=== PATIENT | male | born 1935 | race Caucasian/White ===

== ENCOUNTER 2016-11-20 13:11 | Emergency (ER) | payer MEDICARE, OTHER ==
[~2016-11-20] VITALS: Ht 172.7 cm; Wt 66.0 kg
[~2016-11-20 13:11] MED LIST: Z.0.NO CURRENT MEDS
[2016-11-20 13:18] VITALS: BP 169/90; PULSE 61; RESP 16; TEMP 98.1; O2SAT 100
--- NOTE | 2016-11-20 13:55 | PD ---
HPI Chief Complaint: Injury Time Seen by Provider: 13:51 Travel History International Travel<30 days: No Contact w/Intl Traveler<30days: No Traveled to known affect area: No History of Present Illness HPI 80-year-old male presents to the emergency room for evaluation of left rib pain after trip and fall just prior to arrival. Patient was running/jogging and tripped over a hump in the curb and fell forward. Patient states typically when he falls he will extend his arms and rolled but he wasn't able to roll this time. He believes he struck his left chest on the concrete. He reports anterior left-sided rib pain worse with palpation and deep breathing. Denies hitting his head or loss of consciousness. He also sustained 2 large abrasions to his left knee. Patient denies any pain and was able to walk home without difficulty. He denies pain or injuries anywhere else. Last tetanus was a few months ago. Denies cardiac history, radiation of symptoms, shortness of breath. PFSH Past Medical History Diabetes: No Diminished Hearing: No Respiratory: Yes (PUNCTURED RT LUNG) Tetanus Vaccination: < 5 Years Influenza Vaccination: Yes Past Surgical History Other Surgery: Yes (RIGHT KNEE) Social History Alcohol Use: Yes (OCCASIONSAL) Tobacco Use: No Substance Use: No Allergies-Medications (Allergen,Severity, Reaction): Coded Allergies: No Known Allergies (Verified , 11/20/16) Reported Meds & Prescriptions Reported Meds & Active Scripts Active Review of Systems Except as stated in HPI: all other systems reviewed are Neg Physical Exam Narrative GENERAL: Well-nourished, well-developed male in no acute distress. Ambulatory. SKIN: Warm and dry. 2 superficial abrasions to the left anterior and lateral knee. HEAD: Normocephalic. EYES: No scleral icterus. No injection or drainage. NECK: Supple, trachea midline. No JVD or lymphadenopathy. CARDIOVASCULAR: Regular rate and rhythm without murmurs, gallops, or rubs. RESPIRATORY: Breath sounds equal bilaterally. No accessory muscle use. CHEST: Nontender throughout without deformity or crepitance. No retractions or use of accessory muscles. EXTREMITY: Left knee is nontender to palpation. Full range of motion in all joints. No edema or effusion. Data Data Last Documented VS Vital Signs Date Time Temp Pulse Resp B/P Pulse Ox O2 Delivery O2 Flow Rate FiO2 11/20/16 13:18 98.1 61 16 169/90 100 Orders Ribs, Uni (W/Exp Cxr-Min 3vw) (11/20/16 ) Wound Care (11/20/16 13:48) Electrocardiogram (11/20/16 ) MDM Medical Decision Making Medical Screen Exam Complete: Yes Emergency Medical Condition: Yes Medical Record Reviewed: Yes Differential Diagnosis Abrasion versus strain versus fracture versus contusion Narrative Course 80-year-old male presents to the emergency room for evaluation of left-sided anterior rib pain after trip and fall just prior to arrival. Patient was jogging when he tripped over a curb and fell forward. He believes he landed on his left chest. No associated cardiac symptoms. There are 2 superficial abrasions to the left lateral and anterior knee; they were cleaned and dressed in the ER. There is tenderness to palpation in the left anterior chest wall and pain is worsened with deep inspiration and range of motion of the left upper extremity. EKG shows sinus bradycardia with a rate of 51, no ST elevation ; signed off by my attending physician. Chest x-ray the rib cage is negative for acute abnormality. This is musculoskeletal chest wall pain. Patient discharged with orthopedic instructions and told to follow up with a primary care physician or return to the emergency room for worsening symptoms. He understands and agrees to plan. Diagnosis Primary Impression: Anterior chest wall pain Referrals: Primary Care Physician Patient Instructions: Chest Wall Pain (ED), General Instructions Additional Instructions: Rest and drink plenty of fluids. Take Tylenol as directed, as needed for pain. Apply ice to the affected area for 20 minutes at a time, as needed for pain and swelling. Follow-up with a primary care physician. Return to the emergency room for worsening symptoms. Med/Other Pt SpecificInfo: Prescription(s) given Scripts No Active Prescriptions or Reported Meds Disposition: 01 DISCHARGE HOME Condition: Stable Alee Santacruz Nov 20, 2016 13:55
--- NOTE | 2016-11-20 15:28 | RADHPO ---
EXAM DATE/TIME: 11/20/2016 14:31 [facility] COMPARISON: CHEST PA & LAT, January 10, 2012, 3:21. INDICATIONS : Patient states he has left upper rib pain from fall while running today. MEDICAL HISTORY : None. SURGICAL HISTORY : None. ENCOUNTER: Initial ACUITY: 1 day PAIN SCORE: 5/10 LOCATION: Left upper ribs. FINDINGS: Expiratory view of the chest demonstrates no pneumothorax or acute finding. No rib fracture or acute rib abnormality is identified. There are chronic changes at the distal left clavicle with hypertrophi c bone. CONCLUSION: No rib fracture or acute abnormality is identified. Blair Chavez MD on November 20, 2016 at 15:24 Board Certified Radiologist. This report was verified electronically.
--- NOTE | 2016-11-20 15:53 | EKG ---
Date Performed: 11/20/2016 Time Performed: 14:04:02 PTAGE: 80 years EKG: Sinus bradycardia with borderline 1st degree A-V block Mildly prolonged QT interval Possibl e septal infarct - age undetermined Abnormal ECG COMPARED TO PRIOR ELECTROCARDIOGRAM, Septal infarct pattern is present. This could be due to changes in lead placement. Clinical correlation suggested. PREVIOUS TRACING : 02/28/2008 11.51 DOCTOR: Sina Rizzo Interpretating Date/Time 11/20/2016 15:52:55
== END 2016-11-20 15:44 | disposition home or self-care (01) ==
LOC: PHEFT 13:11
DX: R07.89 Other chest pain (principal); S80.212A Abrasion, left knee, initial encounter; W10.1XXA Fall (on)(from) sidewalk curb, initial encounter; Y93.02 Activity, running
CPT/HCPCS: 71101; 93005

== ENCOUNTER 2017-01-16 19:45 | Observation (INO) | payer MEDICARE, OTHER ==
[~2017-01-16] VITALS: Ht 172.7 cm; Wt 68.2 kg
[2017-01-16 20:11] VITALS: BP 149/85; PULSE 52; RESP 16; TEMP 98.2; O2SAT 98
[2017-01-16 20:20] VITALS: BP 182/91; PULSE 51; O2SAT 93
--- NOTE | 2017-01-16 20:40 | PD ---
HPI Chief Complaint: Dizziness Time Seen by Provider: 20:31 Travel History International Travel<30 days: No Contact w/Intl Traveler<30days: No Traveled to known affect area: No History of Present Illness HPI 81-year-old male presents to the emergency department by private transportation in the care of his for complaint of rightward leaning and "possible dizziness". According to the patient as well as his who is at the bedside , this evening he went to dinner with a friend and his at 5 PM. According to the patient and during dinner he drank 3 large beers. Patient along with his and friend subsequently after dinner went out and walked on the beach. Patient initially had no difficulties with walking or any balance disturbance or dizziness. states that sometime during her walk they think sometime around 7:20 she started noticing that he seemed to be walking with a rightward leaning gait. Patient noticed it as well and tried to get higher up on the sand thinking the ground was unbalanced but could not correct his rightward leaning. They continue to walk a little further and then because of the persistence contacted a escrow agent [facility] and the then drove him to the hospital. Patient noted while he was getting out of the escrow agent jeep and into his vehicle that the balance disturbance seem to be improving. dropped him at the curb and front of the hospital and he was able to ambulate without difficulty to the front door the hospital and then his with him into the hospital. stated that he was not having any difficulty walking and there was no leaning at that time but she decided to hold on him anyway just in case. Patient states he feels fine now does not have any sensation of dizziness and denies any sensation of feeling off balance or rightward leaning. Patient denies any headache, visual disturbance, speech disturbance, confusion, difficulty with swallowing, also no upper or lower extremity numbness tingling or weakness, denies sensation of balance disturbance or dizziness at this time, patient also denies any chest pain, palpitations, sweats, shortness of breath, nausea or vomiting, referred neck jaw back shoulder arm or abdominal pain. Patient has had no recent respiratory illness or febrile illness. She has had no fall or injury. Patient has had no prior history of similar symptoms. Patient takes no blood thinning agents. Patient does take prescription cholesterol medications. [facility] Past Medical History Narrative Medical Hypercholesterolemia, lung puncture, knee surgery, alcohol use; nursing notes reviewed Diabetes: No Diminished Hearing: No Respiratory: Yes (PUNCTURED RT LUNG) Past Surgical History Other Surgery: Yes (RIGHT KNEE) Social History Alcohol Use: Yes (OCCASIONSAL) Tobacco Use: No Substance Use: No Allergies-Medications (Allergen,Severity, Reaction): Coded Allergies: No Known Allergies (Verified , 01/16/17) Reported Meds & Prescriptions Reported Meds & Active Scripts Active Narrative Medication Cholesterol medication Review of Systems Except as stated in HPI: all other systems reviewed are Neg General / Constitutional: No: Fever, Chills Eyes: No: Diploplia, Blurred Vision, Photophobia HENT: Positive: Lightheadedness, No: Headaches, Vertigo Cardiovascular: No: Chest Pain or Discomfort, Palpitations, Diaphoresis Respiratory: No: Shortness of Breath Gastrointestinal: No: Nausea, Vomiting, Diarrhea, Abdominal Pain Genitourinary: No: Flank Pain Musculoskeletal: No: Myalgias, Arthralgias, Weakness, Cramping Skin: No Rash Neurologic: Positive: Dizziness (lightheadedness), Ataxia (rightward balance disturbance/leaning), No: Weakness, Syncope, Focal Abnormalities, Coordination Problem, Tremor, Headache, Change in Mentation, Slurred Speech, Paresthesia, Incontinence, Seizures, Sensory Disturbance Psychiatric: No: Anxiety Endocrine: No: Heat Intolerance Hematologic/Lymphatic: No: Easy Bruising Physical Exam Narrative GENERAL: Well-developed well-nourished male in no acute distress no respiratory distress; GCS 15; NIHSS: 0 SKIN: Warm and dry. HEAD: Atraumatic. Normocephalic. EYES: Pupils equal and round. Extraocular muscles intact. No scleral icterus. No injection or drainage. ENT: No nasal bleeding or discharge. Mucous membranes pink and moist. Airway is patent. NECK: Trachea midline. No JVD. CARDIOVASCULAR: Regular rate and rhythm. RESPIRATORY: No accessory muscle use. Clear to auscultation. Breath sounds equal bilaterally. GASTROINTESTINAL: Abdomen soft, non-tender, nondistended. Hepatic and splenic margins not palpable. MUSCULOSKELETAL: Extremities without clubbing, cyanosis, or edema. No obvious deformities. NEUROLOGICAL: Awake and alert. GCS 15. No obvious cranial nerve deficits. Motor grossly within normal limits. Five out of 5 muscle strength in the arms and legs. Sensory exam intact. No limb ataxia. No pronator drift. DTRs 2+ and equal. Negative Romberg. Normal speech. PSYCHIATRIC: Appropriate mood and affect; insight and judgment normal. Data Data Last Documented VS Vital Signs Date Time Temp Pulse Resp B/P Pulse Ox O2 Delivery O2 Flow Rate FiO2 01/16/17 21:48 51 152/76 96 Room Air 01/16/17 20:42 16 01/16/17 20:11 98.2 Orders Electrocardiogram (01/16/17 20:31) Prothrombin Time / Inr (Pt) (01/16/17 20:31) Act Partial Throm Time (Ptt) (01/16/17 20:31) Complete Blood Count With Diff (01/16/17 20:31) Basic Metabolic Panel (Bmp) (01/16/17 20:31) Troponin I (01/16/17 20:31) Ua Includes Microscopic (01/16/17 20:31) Ct Brain W/O Iv Contrast(Rout) (01/16/17 20:31) Chest, Single Ap (01/16/17 20:31) Ecg Monitoring (01/16/17 20:31) Iv Access Insert/Monitor (01/16/17 20:31) Oximetry (01/16/17 20:31) Blood Glucose (01/16/17 20:31) Sodium Chloride 0.9% Flush (Ns Flush) (01/16/17 20:45) Alcohol (Ethanol) (01/16/17 20:31) Aspirin (Aspirin) (01/16/17 22:15) Admit Order (Ed Use Only) (01/16/17 ) ^ Saline Lock (01/16/17 22:07) Resp Oxygen Evaristo C Titrat 1-4 L (01/16/17 ) ^ Notify Dr: Other (01/16/17 22:07) Sodium Chloride 0.9% Flush (Ns Flush) (01/17/17 09:00) Sodium Chloride 0.9% Flush (Ns Flush) (01/16/17 22:15) Labs Laboratory Tests Test 01/16/17 01/16/17 20:30 22:05 White Blood Count 4.3 TH/MM3 Red Blood Count 4.65 MIL/MM3 Hemoglobin 14.6 GM/DL Hematocrit 43.9 % Mean Corpuscular Volume 94.3 FL Mean Corpuscular Hemoglobin 31.5 PG Mean Corpuscular Hemoglobin 33.4 % Concent Red Cell Distribution Width 12.7 % Platelet Count 196 TH/MM3 Mean Platelet Volume 7.1 FL Neutrophils (%) (Auto) 72.1 % Lymphocytes (%) (Auto) 16.8 % Monocytes (%) (Auto) 8.9 % Eosinophils (%) (Auto) 1.4 % Basophils (%) (Auto) 0.8 % Neutrophils # (Auto) 3.1 TH/MM3 Lymphocytes # (Auto) 0.7 TH/MM3 Monocytes # (Auto) 0.4 TH/MM3 Eosinophils # (Auto) 0.1 TH/MM3 Basophils # (Auto) 0.0 TH/MM3 CBC Comment DIFF FINAL Differential Comment Prothrombin Time 10.4 SEC Prothromb Time International 0.9 RATIO Ratio Activated Partial 24.7 SEC Thromboplast Time Sodium Level 145 MEQ/L Potassium Level 3.9 MEQ/L Chloride Level 105 MEQ/L Carbon Dioxide Level 30.0 MEQ/L Anion Gap 10 MEQ/L Blood Urea Nitrogen 18 MG/DL Creatinine 1.20 MG/DL Estimat Glomerular Filtration 58 ML/MIN Rate Random Glucose 82 MG/DL Calcium Level 8.5 MG/DL Troponin I LESS THAN 0.02 NG/ML Ethyl Alcohol Level 51 MG/DL Urine Color YELLOW Urine Turbidity CLEAR Urine pH 6.5 Urine Specific Cooks 1.015 Urine Protein NEG mg/dL Urine Glucose (UA) NEG mg/dL Urine Ketones NEG mg/dL Urine Occult Blood SMALL Urine Nitrite NEG Urine Bilirubin NEG Urine Leukocyte Esterase NEG Urine WBC 0-2 /hpf Urine Squamous Epithelial 0-5 /hpf Cells Microscopic Urinalysis Comment CATH-CULT NOT IND MDM Medical Decision Making Medical Screen Exam Complete: Yes Emergency Medical Condition: Yes Medical Record Reviewed: Yes Interpretation(s) EKG sinus bradycardia rate 48 first-degree AV block nonspecific septal T wave changes prolonged QT; no acute ST elevation or injury pattern change noted Last Impressions Head CT 01/16/172030 Signed Impressions: Service Date/Time: Monday, January 16, 2017 20:42 - CONCLUSION: Slight atrophic and small vessel ischemic changes without any evidence for acute hemorrhage or mass effect. Bob Gallardo MD Chest X-Ray 01/16/172030 Signed Impressions: Service Date/Time: Monday, January 16, 2017 20:50 - CONCLUSION: No acute cardiopulmonary disease. Bob Gallardo MD CBC & BMP Diagram 01/16/17 20:30 Vital Signs Date Time Temp Pulse Resp B/P Pulse Ox O2 Delivery O2 Flow Rate FiO2 01/16/17 21:48 51 152/76 96 Room Air 01/16/17 20:42 48 16 159/78 99 Room Air 01/16/17 20:21 56 97 Room Air 01/16/17 20:20 51 182/91 93 Room Air 01/16/17 20:20 182/91 01/16/17 20:11 98.2 52 16 149/85 98 Differential Diagnosis TIA, CVA, alcohol ingestion, arrhythmia, bradycardia Narrative Course Patient placed on phototypesetting equipment monitor IV access obtained specimens collected and sent for resulting patient sent for stat CT brain noncontrast; at this time patient symptoms have resolved his NIHSS score is 0, concern for TIA with resolution of symptoms therefore does not meet stroke alert criterion at this time. @ 20:58 PM patient continues to feel well voicing no concerns or complaints or recurrent symptoms, has returned from CT. Patient is sitting resting 45; nephrology with at bedside speaking in full sentences no slurring of speech no confusion no facial droop no focal weakness laughing and joking with spouse. @21:[address] brain noncontrast reveals no acute injury pattern does show evidence of atrophy and chronic small vessel ischemic changes no acute findings no mass effect no hemorrhage. Patient informed of imaging results and recommendation for admission; patient with phototypesetting equipment monitor bradycardia ---- patient is a runner and runs daily. At 10:05 PM patient's case discussed with [facility] hospitalist Blair Pierre PA-C recommends patient opted admit to Dr. Mari for TIA Critical Care Narrative Aggregate critical care time was 35 minutes. Time to perform other separately billable procedures was not included in the critical care time. My time did not include minutes spent treating any other patients simultaneously or on activities that did not directly contribute to the patient's treatment. The services I provided to this patient were to treat and/or prevent clinically significant deterioration that could result in: CVA, arrhythmia, I provided critical care services requiring my management, as noted below: Chart data review, documentation time, medication orders and management, vital sign assessments/reviewing monitor data, ordering and reviewing lab tests, ordering and interpreting/reviewing x-rays and diagnostic studies, care of the patient and discussion of the patient with the admitting physicians. Physician Communication Physician Communication discussed with Marco Antonio Pierre PA-C admit obs to Dr Mari Diagnosis Primary Impression: TIA (transient ischemic attack) Qualified Code: G45.9 - Transient cerebral ischemia, unspecified type Additional Impression: Bradycardia Admitting Information Admitting Physician Requests: Observation Scripts No Active Prescriptions or Reported Meds Dang Zayas MD Jan 16, 2017 20:40
[2017-01-16 20:42] VITALS: BP 159/78; PULSE 48; RESP 16; O2SAT 99
[2017-01-16 20:43] LABS: AUTOMATED NEUTROPHIL # 3.1 TH/MM3 (1.8-7.7); BASOPHIL % 0.8 % (0.0-2.0); EOSINOPHIL # 0.1 TH/MM3 (0-0.4); EOSINOPHIL % 1.4 % (0.0-4.0); HEMATOCRIT 43.9 % (39.0-51.0); HEMO FLAGS DIFF FINAL; LYMPH % 16.8 % (9.0-44.0); LYMPHOCYTE # 0.7 TH/MM3 (1.0-4.8); MEAN CELL VOLUME 94.3 FL (80.0-100.0); MEAN CORPUSCULAR HEMOGLOBIN 31.5 PG (27.0-34.0); MEAN CORPUSCULAR HGB CONC 33.4 % (32.0-36.0); MONO % 8.9 % (0.0-8.0); NEUT % 72.1 % (16.0-70.0); PLATELET COUNT 196 TH/MM3 (150-450); RED BLOOD COUNT 4.65 MIL/MM3 (4.50-5.90); RED CELL DISTRIBUTION WIDTH 12.7 % (11.6-17.2); WHITE BLOOD COUNT 4.3 TH/MM3 (4.0-11.0)
[2017-01-16] MEDS ORDERED: SODIUM CHLORIDE 0.9% FLUSH 10 ML FLUSH IVF PRN ×2 (20:45→22:15)
[2017-01-16 20:50] LABS: CHLORIDE 105 MEQ/L (98-107); POTASSIUM 3.9 MEQ/L (3.5-5.1); SODIUM (NA) 145 MEQ/L (136-145)
[2017-01-16 20:53] LABS: ANION GAP 10 MEQ/L (5-15); BLOOD UREA NITROGEN 18 MG/DL (7-18)
[2017-01-16 20:54] LABS: APTT (PATIENT) 24.7 SEC (24.3-30.1); INTERNATIONAL NORMALIZED RATIO 0.9 RATIO; PROTHROMBIN TIME - PATIENT 10.4 SEC (9.8-11.6)
[2017-01-16 20:56] LABS: GLOMERULAR FILTRATION RATE 58 ML/MIN (>89)
--- NOTE | 2017-01-16 21:05 | RADHPO ---
EXAM DATE/TIME: 01/16/2017 20:42 [facility] COMPARISON: No previous studies available for comparison. INDICATIONS : Swaying to right side when walking that has since subsided. RADIATION DOSE: 64.84 CTDIvol (mGy) MEDICAL HISTORY : None SURGICAL HISTORY : None. ENCOUNTER: Initial ACUITY: 1 day PAIN SCALE: 0/10 LOCATION: cranial TECHNIQUE: Multiple contiguous axial images were obtained of the head. Using automated exposure control and adjustment of the mA and/or kV according to patient size, radiation dose was kept as low as reasonably achievable to obtain optimal diagnostic quality images. FINDINGS: There is no evidence for intracranial hemorrhage, mass effect, mass lesions, or edema. The visualize d bony structures appear intact. Slight degree of brain atrophy is seen. Slight periventricular whit e matter changes are seen nonspecific mostly consistent with chronic small vessel ischemic changes. There are no signs of acute infarction for technique. CONCLUSION: Slight atrophic and small vessel ischemic changes without any evidence for acute hemorrhage or mass effect. Bob Gallardo MD on January 16, 2017 at 21:01 Board Certified Radiologist. This report was verified electronically.
--- NOTE | 2017-01-16 21:12 | RADHPO ---
EXAM DATE/TIME: 01/16/2017 20:50 [facility] COMPARISON: No previous studies available for comparison. INDICATIONS : Chest discomfort, dizziness for 3 hours MEDICAL HISTORY : None. SURGICAL HISTORY : None. ENCOUNTER: Initial ACUITY: 1 day PAIN SCORE: 0/10 LOCATION: Bilateral chest FINDINGS: The lungs are clear without infiltrate, nodule, or mass. There is no appreciable pleural effusion fo r technique. Heart and mediastinum are unremarkable. CONCLUSION: No acute cardiopulmonary disease. Bob Gallardo MD on January 16, 2017 at 21:10 Board Certified Radiologist. This report was verified electronically.
[2017-01-16 21:48] VITALS: BP 152/76; PULSE 51; O2SAT 96
[2017-01-16 22:12] LABS: BLOOD, URINE SMALL (NEG); GLUCOSE,URINE NEG (NEG); KETONE, URINE NEG (NEG); NITRITE,URINE NEG (NEG); PH, URINE 6.5 (5.0-8.5)
[2017-01-16] MEDS ORDERED: ASPIRIN 325 MG TAB PO ONE (22:15)
[2017-01-16 22:24] LABS: URINE COLOR YELLOW (YELLW/STRAW)
[2017-01-16 22:25] LABS: COMMENT (UR) CATH-CULT NOT IND; SQUAMOUS EPITHELIAL CELL URINE 0-5 /hpf (0-5); WBC, URINE 0-2 /hpf (0-5)
[2017-01-16] MEDS ORDERED: ONDANSETRON HCL 4 MG/2 ML VIAL IVP PRN (23:00)
[2017-01-16] MEDS ORDERED: NALOXONE HCL 0.4 MG/ML AMP IV PRN (23:00)
[2017-01-16] MEDS ORDERED: SODIUM CHLORIDE 0.9% FLUSH 5 ML FLUSH IV FLUSH PRN (23:00)
[2017-01-16] MEDS ORDERED: SENNOSIDES 8.6 MG TAB PO PRN (23:00)
[2017-01-16] MEDS ORDERED: ACETAMINOPHEN 325 MG TAB PO PRN (23:00)
[2017-01-16] MEDS: SODIUM CHLOR 0.9% 1000 ML INJ 1,000 ML IV SCH (23:11)
[2017-01-17] VITALS (10 sets, daily range): BP systolic 133–175; BP diastolic 74–99; PULSE 45–91; RESP 16–24; TEMP 97–97.2; O2SAT 95–99
[2017-01-17] MEDS ORDERED: PRAV10TA PO (07:03)
--- NOTE | 2017-01-17 08:31 | RADHPO ---
EXAM DATE/TIME: 01/17/2017 08:03 [facility] COMPARISON: No previous studies available for comparison. INDICATIONS : Cerebrovascular accident. Unsteady gait. MEDICAL HISTORY : Hypercholesterolemia. Lung puncture. SURGICAL HISTORY : Knee arthroscopy. Spine surgery. ENCOUNTER: Initial ACUITY: 1 day PAIN SCORE: 0/10 LOCATION: Bilateral neck PEAK SYSTOLIC VELOCITIES (cm/sec): ICA/CCA RATIO: Right: 1.2 Left: 1.0 ICA: Right: 65 Left: 92 CCA: Right: 52 Left: 89 ECA: Right: 101 Left: 122 VERTEBRAL: Right: 49 antegrade Left: 65 antegrade Elevated flow velocities and ICA/CCA ratios have been found to correlate with increased degrees of vessel stenosis, calculated as percentage of diameter relative to a normal segment of distal ICA/CCA FINDINGS: RIGHT CAROTID: No significant stenosis is visualized. The waveforms are within normal limits. LEFT CAROTID: No significant stenosis is visualized. The waveforms are within normal limits. VERTEBRAL ARTERIES: Antegrade flow is seen in both vertebral arteries. MISCELLANEOUS: None. CONCLUSION: No evidence of flow-limiting carotid stenosis. Blair Urias MD on January 17, 2017 at 8:29 Board Certified Radiologist. This report was verified electronically.
[2017-01-17] MEDS: SODIUM CHLORIDE 0.9% FLUSH 10 ML FLUSH IV FLUSH SCH ×2 (09:00→21:00)
[2017-01-17] MEDS ORDERED: SODIUM CHLORIDE 0.9% FLUSH 10 ML FLUSH IV FLUSH SCH (09:00)
[2017-01-17] MEDS: ENOXAPARIN SODIUM 40 MG/0.4 ML SYRINGE SQ SCH (09:15)
[2017-01-17] MEDS: ASPIRIN EC 81 MG TABEC PO SCH (09:15)
[2017-01-17] MEDS: SODIUM CHLOR 0.9% 1000 ML INJ 1,000 ML IV SCH ×2 (09:15→18:54)
[2017-01-17 09:51] LABS: HDL CHOLESTEROL 72.8 MG/DL (40.0-60.0)
--- NOTE | 2017-01-17 12:52 | MH ---
cc: NICO ESPINAL MD DATE OF ADMISSION: 01/16/2017 CHIEF COMPLAINT Dizziness. HISTORY OF PRESENT ILLNESS This is a 81-year-old male with past medical-surgical history significant for hyperlipidemia, history of lung puncture, history of knee surgery, came to the ER at [facility] by private transportation with his for complaining of possible dizziness. The patient and his was at the bedside. The patient said he went to dinner with a friend and his at 05:00 p.m. According to the patient and , had dinner, he drank three large beers, the patient along with his and friend, subsequently after dinner went out and walked on the beach. The patient initially had no difficulty in walking and balance disturbances, went out and walked on the beach and then the patient stated that during the walk, they think sometime around 07:20 he started noticing that he seems to have walking with a rightward leaning gait. He noted that it was as well and tried to get higher up on the sand thinking the ground was unbalanced but could not correct his rightward leaning and the [employer] [facility] and the then drove him to the hospital. The patient noticed that while he was getting out of the [employer] keep and into his vehicle, the balance disturbance seemed to be improving and when I talked to the patient the patient denies any dizziness, any other complaint, other than that nothing significant. PAST MEDICAL AND SURGICAL HISTORY As dictated above. SOCIAL HISTORY Denies smoking, drinks alcohol. Denies any drug abuse. Lives at home with his . He is a retired a operator. FAMILY HISTORY Nothing significant. ALLERGIES NO KNOWN DRUG ALLERGIES. MEDICATIONS He takes a cholesterol medicine, but does not remember the name. PHYSICAL EXAMINATION GENERAL: On physical examination, this is 81-year-old male sitting on the bed, not in acute distress. VITAL SIGNS: Temperature 98.2, heart rate 56, respiration 16, blood pressure 175/99, O2 saturation 97% on room air. HEENT: Normocephalic, atraumatic. EOMI. PERRL. Oral mucosa moist. NECK: Supple. No visible thyromegaly or neck mass. Trachea central. CVS: Regular rate and rhythm. RESPIRATIONS: Clear to auscultation bilaterally. ABDOMEN: Soft, nontender. Bowel sounds audible. EXTREMITIES: No cyanosis or clubbing. Full range of motion of all extremities. NEURO: Awake, alert, oriented x4. No focal deficits. SKIN: Warm and dry. PSYCHE: The patient is cooperative. Mood and affect is normal. LABORATORY DATA Includes CBC is totally unremarkable except for neutrophils 72.1 high, monos 8.9 high, lymph 0.7 low. BMP totally unremarkable except for GFR 58 low, triglyceride 41 low, LDL 88, total cholesterol 169, PT 10.4, INR 0.9, APTT 24.7. Ethyl alcohol 51 high. Urine examination shows small occult blood, otherwise urinalysis normal. IMAGING STUDIES CT brain done shows slight atrophic and small-vessel ischemic changes without any evidence of acute hemorrhage or mass-effect. Chest x-ray done shows nothing acute. Carotid ultrasound done shows no evidence of flow-limiting carotid stenosis. ASSESSMENT/PLAN 1. This is a 81-year-old male who came to the ER diagnosed with dizziness, exact etiology not known, most likely from alcohol abuse. The patient's dizziness has resolved. CT brain does not show anything acute. I will consult neurology for further recommendation. 2. Alcohol abuse. The patient started on DT prophylaxis. 3. History of hyperlipidemia. The patient does not remember which medicine he takes for cholesterol. 4. DVT prophylaxis with Lovenox 40 mg subcutaneous daily. 5. GI prophylaxis with Protonix 40 mg p.o. daily. 6. We are going to manage the patient on a daily basis and make recommendation on a daily basis. Nico Espinal MD EA/NICOLLE /12:11 PM /12:26 PM
[2017-01-17] MEDS: PANTOPRAZOLE SOD 40 MG DELAYED RELEASE TAB PO SCH (13:22)
--- NOTE | 2017-01-17 14:54 | EKG ---
Date Performed: 01/16/2017 Time Performed: 23:14:10 PTAGE: 81 years EKG: Sinus bradycardia with 1st degree A-V block. Prolonged QT interval Septal T wave changes ar e nonspecific Compared to prior tracing R wave progression has improved likely due to lead placement differences Abnormal ECG PREVIOUS TRACING : 11/20/2016 14.04 DOCTOR: Slim Velasquez Interpretating Date/Time 01/17/2017 14:43:53
--- NOTE | 2017-01-17 16:14 | RADHPO ---
EXAM DATE/TIME: 01/17/2017 15:04 [facility] COMPARISON: No previous studies available for comparison. INDICATIONS : CVA. MEDICAL HISTORY : None. SURGICAL HISTORY : Laser spine surgery. Knee. ENCOUNTER: Subsequent ACUITY: 2 day PAIN SCORE: 0/10 LOCATION: cranial TECHNIQUE: Multiplanar, multisequence MRI of the brain was performed without contrast. FINDINGS: CEREBRUM: The ventricles are normal for age. No evidence of midline shift, mass lesion, hemorrhage or acute in farction. No extraaxial fluid collections are seen. The pituitary gland and suprasellar cistern are normal in configuration. WHITE MATTER: There are scattered areas of increased T2 signal in the white matter most consistent with moderate mi crovascular ischemic demyelinative change. No significant signal abnormalities are seen in the white matter. POSTERIOR FOSSA: The cerebellum and brainstem are intact. The 4th ventricle is midline. The cerebellopontine angle is unremarkable. The cerebellar tonsils are normal in position. DIFFUSION IMAGING: No focal areas of restricted diffusion are seen. No evidence of acute infarction. EXTRACRANIAL: The visualized portions of the orbits and paranasal sinuses are unremarkable. CONCLUSION: 1. No findings to indicate acute cortical infarction are evident. 2. Scattered areas of T2 signal within the white matter consistent with moderate microvascular ischem ic demyelinative change. Clifford Garland MD on January 17, 2017 at 16:00 Board Certified Radiologist. This report was verified electronically.
--- NOTE | 2017-01-17 16:36 | RADHPO ---
EXAM DATE/TIME: 01/17/2017 15:04 [facility] COMPARISON: No previous studies available for comparison. INDICATIONS : CVA. MEDICAL HISTORY : None. SURGICAL HISTORY : Laser spine surgery. Knee ENCOUNTER: Subsequent ACUITY: 2 day PAIN SCORE: 0/10 LOCATION: distal Please note a normal MRA of the brain does not entirely exclude the possibility of a small aneurysm, nor the possibility of distal intracranial vessel disease. TECHNIQUE: 3D time of flight MRA was performed. Source images, multiplanar STS MIP, and 3D volume MIP reconstru ctions were reviewed. FINDINGS: There is excellent visualization of the major intracranial arteries out to the second-order branch ve ssels. There is no evidence for aneurysm, vessel truncation or stenosis, and no evidence for vascula r malformation. CONCLUSION: 1. Negative examination. Clifford Garland MD on January 17, 2017 at 16:33 Board Certified Radiologist. This report was verified electronically.
--- NOTE | 2017-01-17 20:01 | EC ---
Study Study Date:01/17/2017 STUDY CONCLUSIONS SUMMARY LEFT VENTRICLE: The cavity size was normal. Systolic function was normal. The estimated ejection fraction was in the range of 55% to 60%. Wall motion was normal; there were no regional wall motion abnormalities. Doppler parameters are consistent with abnormal left ventricular relaxation (grade 1 diastolic dysfunction). If LV function is below 40, please consider prescribing an ACEI or ARB or document rationale for non-use. PROCEDURE DATA STUDY STATUS: Elective. Procedure: Transthoracic echocardiography. Image quality was good. Scanning was performed from the parasternal, apical, and subcostal acoustic windows. Study completion: The patient tolerated the procedure well. Transthoracic echocardiography. M-mode, complete 2D, complete spectral Doppler, and color Doppler. Height: Height: 68in. Weight: Weight: 145.7lb. Body mass index: BMI: 22.2kg/m^2. Body surface area: BSA: 1.79m^2. Patient status: Inpatient. CARDIAC ANATOMY LEFT VENTRICLE: The cavity size was normal. Systolic function was normal. The estimated ejection fraction was in the range of 55% to 60%. Wall motion was normal; there were no regional wall motion abnormalities. Doppler parameters are consistent with abnormal left ventricular relaxation (grade 1 diastolic dysfunction). AORTIC VALVE: The valve appears to be grossly normal. Doppler: There was no stenosis. No significant regurgitation. Valve area: 2.33cm^2(VTI). Indexed valve area: 1.3cm^2/m^2 (VTI). Valve area: 2.47cm^2 (Vmax). Indexed valve area: 1.38cm^2/m^2 (Vmax). Mean gradient: 4mm Hg (S). MITRAL VALVE: The valve appears to be grossly normal. Doppler: There was no evidence for stenosis. Trace to mild regurgitation. LEFT ATRIUM: The atrium was normal in size. ATRIAL SEPTUM: No defect or patent foramen ovale was identified. RIGHT VENTRICLE: The cavity size was at the upper limits of normal. Systolic function was normal. PULMONIC VALVE: Not well visualized. Doppler: There was no evidence for stenosis. Trace regurgitation. TRICUSPID VALVE: The valve appears to be grossly normal. Doppler: There was no evidence for stenosis. Trace to mild regurgitation. PERICARDIUM: There was no pericardial effusion. Patient weight: 145.7lb _Ejection fraction:_ 65-75% _Fractional shortening:_ 32% up to 5Kg 5-11.5Kg 11.6-22.9Kg 23-45Kg 45-57Kg Aortic Root 7-13 <17 13-22 17-27 17-27 LA diam 6-13 <23 24-38 33-47 37-40 RVID 10-17 7-15 7-15 7-18 8-17 LVIDd 12-22 <32 24-38 33-47 37-40 LVPW 2-4 3-6 5-7 6-8 7-8 IVS 2-4 3-6 5-7 6-8 7-8 BASIC MEASUREMENTS ADULT NORMAL Left ventricle LV internal dimension, ED, chordal *33.8 mm 43-52 level, PLAX LV internal dimension, ES, chordal 25.3 mm 23-38 level, PLAX Fractional shortening, chordal level, *25 % >29 PLAX LV posterior wall thickness, ED 11.4 mm IVS/LVPW ratio, ED 0.99 <1.3 Ventricular septum Septal thickness, ED 11.3 mm Aortic valve Leaflet separation 23 mm 15-26 Aorta Root diameter, ED 37 mm Left atrium Anterior-posterior dimension 31 mm Anterior-posterior dimension index 1.73 cm/m^2 <2.2 BASIC MEASUREMENTS ADULT NORMAL Aortic valve Leaflet separation 23 mm 15-26 DOPPLER MEASUREMENTS ADULT NORMAL Main pulmonary artery Pressure, S 26 mm Hg =30 Aortic valve Peak velocity, S 139 cm/s Mean velocity, S 95.3 cm/s VTI, S 28.4 cm Mean gradient, S 4 mm Hg Valve area, VTI 2.33 cm^2 Valve area index, VTI 1.3 cm^2/m^2 Valve area, Vmax 2.47 cm^2 Valve area index, Vmax 1.38 cm^2/m^2 Mitral valve Peak E-wave velocity 69.6 cm/s Peak A-wave velocity 97.6 cm/s Deceleration time *366 ms 150-230 Peak E/A ratio 0.7 Tricuspid valve Regurgitant peak velocity 249 cm/s Peak RV-RA gradient, S 25 mm Hg Maximal regurgitant velocity 249 cm/s Systemic veins Estimated CVP 5 mm Hg Right ventricle RV pressure, S *30 mm Hg <30 Pulmonic valve Peak velocity, S 93.6 cm/s LEGEND: Mean values are shown as u=mean value. Asterisk (*) doe values outside specified normal range. Prepared and signed by Ortega Perla [id number]
[2017-01-17] MEDS ORDERED: PRAVASTATIN SOD 10 MG TAB PO SCH (22:30)
[2017-01-18] VITALS: BP 172/90; PULSE 54; RESP 20; TEMP 96.5; O2SAT 96
[2017-01-18 04:00] VITALS: BP 134/70; PULSE 48; RESP 18; TEMP 97.4; O2SAT 97
[2017-01-18] MEDS: SODIUM CHLOR 0.9% 1000 ML INJ 1,000 ML IV SCH (06:56)
[2017-01-18 08:00] VITALS: BP 152/82; PULSE 44; PULSE 48; RESP 20; TEMP 96.9; O2SAT 96
--- NOTE | 2017-01-18 08:23 | HHI.PR ---
Subjective History of Present Illness Patient feel better d/w Neurology at bed side have Bradycardia consulted cardiology...ok to DC per neurology MRI Brain did not show any stroke. Review of Systems Constitutional Constitutional: Fatigue Vitals/Results Intake & Output 01/17/17 01/17/17 01/18/17 15:00 23:00 07:00 Intake Total 1000 ml 600 ml 1060 ml Balance 1000 ml 600 ml 1060 ml Intake Oral 600 ml 60 ml IV Total 1000 ml 1000 ml # Voids 6 2 # Bowel Movements 0 0 Vital Signs Vital Signs Date Time Temp Pulse Resp B/P Pulse Ox O2 Delivery O2 Flow Rate FiO2 01/18/17 08:00 96.9 44 20 152/82 96 01/18/17 04:00 97.4 48 18 134/70 97 Manual Cuff/Auscultation 01/18/17 00:00 96.5 54 20 172/90 96 Automatic Cuff 01/17/17 20:00 45 01/17/17 20:00 97.0 49 20 155/90 96 01/17/17 19:48 97 21 01/17/17 16:50 97.2 91 24 133/85 99 01/17/17 11:00 95 21 01/17/17 09:10 56 16 175/99 97 Room Air CBC/BMP: 01/16/17 2030 01/16/172029 Physical Exam General General Appearance: No Acute Distress, Comfortable Eyes Eye Exam: Pupils Equal, Pupils Reactive, Sclera White, Extraocular Movement Intact Throat Throat Exam: Oral Mucosa [place] & Moist, Oral Pharynx Normal Neck Neck Exam: Neck Supple, Trachea Midline Pulmonary Resp Exam: Clear Bilaterally, Breath Sounds Equal, No Distress Cardiology CV Exam: Regular, Normal Sinus Rhythm, Bradycardia Gastrointestinal/Abdomen GI Exam: Soft, Non-Tender, Bowel Sounds Present Musculoskeletal MS Exam: Normal Tone Integumentary Skin Exam: Clear, Warm, Dry, Intact Extremeties Extremities Exam: No Edema Neurologic Neuro Exam: Alert, Awake, Oriented, Speech Clear, Moving All Extremities, No Focal Deficits Psychiatric Psych Exam: Appropriate Responses PUD Prophylasis PUD Prophylaxis: Protonix Assessment/Plan Assessment/Plan ASSESSMENT/PLAN 1. This is a 81-year-old male who came to the ER diagnosed with dizziness, exact etiology not known, most likely from alcohol abuse. The patient's dizziness has resolved. CT brain does not show anything acute. neurology input noted d/w Neurology at bed side ..ok to DC per neurology, MRI Brain did not show any stroke. 2. Alcohol abuse. The patient started on DT prophylaxis. 3. History of hyperlipidemia. The patient does not remember which medicine he takes for cholesterol. 4. DVT prophylaxis with Lovenox 40 mg subcutaneous daily. 5. GI prophylaxis with Protonix 40 mg p.o. daily. 6. Bradycardia consulted cardiology. check EKG. We are going to manage the patient on a daily basis and make recommendation on a daily basis. Discussed Condition with: Patient Nico Whaley MD Jan 18, 2017 08:23
[2017-01-18] MEDS ORDERED: LORazepam 1 MG TAB PO PRN (08:30)
[2017-01-18] MEDS ORDERED: FOLIC ACID 1 MG TAB PO SCH (09:00)
[2017-01-18] MEDS ORDERED: THIAMINE HCL 100 MG TAB PO SCH (09:00)
[2017-01-18] MEDS: PANTOPRAZOLE SOD 40 MG DELAYED RELEASE TAB PO SCH (09:34)
[2017-01-18] MEDS: ENOXAPARIN SODIUM 40 MG/0.4 ML SYRINGE SQ SCH (09:35)
[2017-01-18] MEDS: ASPIRIN EC 81 MG TABEC PO SCH (09:35)
--- NOTE | 2017-01-18 10:22 | MB ---
cc: LONDON YEAGER MD DATE OF CONSULTATION: 01/18/2017 REASON FOR CONSULTATION Possible TIA. HISTORY OF PRESENT ILLNESS Mr. Simms is an 81-year-old male with past medical history of hyperlipidemia, history of knee surgery and lung puncture, who presents to the emergency room at [facility] with his complaining of questionable dizziness. They stated that when they were walking by the beach after he had more than his usual amount of alcohol, she noticed that he was leaning to the right side. Denies headache, double vision, slurred speech, weakness, passing out, or any convulsive activity. This lasted for a few minutes. Once he was in the ED he was back to himself. There was no associated nausea or vomiting. He does not report any previous similar episodes. REVIEW OF SYSTEMS A 12-point review of systems is negative except for what is stated in the HPI. PAST MEDICAL HISTORY Hyperlipidemia. A generally active and healthy person for his age. SOCIAL HISTORY Denies smoking. Drinks alcohol. Denies illicit drug abuse. Lives with his . FAMILY HISTORY Noncontributory. ALLERGIES No known drug allergies. PHYSICAL EXAMINATION GENERAL: Awake, alert, pleasant, good historian. HEENT: Atraumatic, normocephalic. Intact hearing. Intact vision. LUNGS: Respirations clear to auscultation bilaterally. CARDIAC: Sinus bradycardia, sinus rhythm. EXTREMITIES: No cyanosis, clubbing or edema. Full range of motion. NEUROLOGIC: Awake, alert, oriented to time, person and place. Intact speech. Intact speech content. Cranial nerves are grossly intact from II-XII. Motor examination 5/5 bilateral and symmetrical. Normal tone. No abnormal movements. Sensation is intact to light touch and temperature bilateral and symmetrical. Reflexes are 2+ bilateral and symmetrical. Plantars are bilaterally downgoing. Lltaqu-yp-chah and [id number]-os-[id number] are normal bilateral and symmetrical. Stance is normal. Slow tandem gait. Negative Romberg. No ataxia. LABORATORY Ethyl alcohol is elevated at 51.PT 10.4, INR 0.9. Sodium 145, potassium 30.9, anion gap 10, BUN 18, creatinine 1.2. WBC 4.3, hemoglobin 14.6, MCV 94.3. IMAGING - Head CT scan without contrast revealed slight atrophy and small vessel ischemic changes without any evidence of acute hemorrhage or mass effect. - Brain MRI revealed no findings to indicate acute cortical infarction. Scattered areas of T2 signal within the white matter consistent with moderate microvascular ischemic demyelinating changes. - Carotid ultrasound: No evidence of flow-limiting carotid stenosis. - Head MRI droop was negative and unremarkable. DIAGNOSTIC IMPRESSION 1. TIA. 2. Alcohol abuse. 3. Hyperlipidemia. PLAN 1. Start aspirin 81 mg daily. 2. Consult cardiology for sinus bradycardia, questionable symptomatic. 3. Fall precautions. 4. Follow-up with neurology as an outpatient. 5. The patient is stable from a neurology standpoint with a nonfocal examination and unremarkable neurologic investigation. Thank you for the opportunity to participate in the care of your patient. MD DORIAN Wu/RYAN /9:12 AM /10:13 AM SUSAN
[2017-01-18 10:52] VITALS: O2SAT 96
[2017-01-18 12:00] VITALS: BP 159/79; PULSE 47; RESP 22; TEMP 96.8; O2SAT 97
[2017-01-18 16:00] VITALS: BP 145/88; PULSE 48; RESP 20; TEMP 96.7; O2SAT 96
[2017-01-18] MEDS ORDERED: ASPI81TA11 PO (16:44)
[2017-01-18] MEDS ORDERED: VITA100T2 PO (16:44)
[2017-01-18] MEDS ORDERED: PRAV10TA PO (16:44)
[2017-01-18] MEDS ORDERED: FOLI1TAB4 PO (16:44)
--- NOTE | 2017-01-18 20:42 | MB ---
cc: EVELYN WARNER MD DATE OF CONSULTATION 01/18/17 HISTORY OF PRESENT ILLNESS Mr. Simms is an 81 year old white male with no previous cardiac history. He was walking on the beach after drinking a couple of beers. He noticed he was leaning to the right side for several minutes. His symptoms completely improved. He had not had any speech impediment or any other symptoms. He has not had any chest pain, shortness of breath or peripheral edema, no dizziness, lightheadedness or syncope. PAST MEDICAL HISTORY 1. Dyslipidemia 2. Knee surgery 3. Pneumothorax No history of hypertension, diabetes mellitus, coronary artery disease or cerebrovascular accident. MEDICATIONS 1. Thiamine 2. Folic acid 3. Pravastatin 30 mg a day 4. Pantoprazole 5. Lovenox 6. Aspirin 81 mg a day ALLERGIES None. SOCIAL HISTORY The patient does not smoke. He states he drinks two beers a week. He is accompanied by his . FAMILY HISTORY Negative for heart disease. REVIEW OF SYSTEMS Otherwise negative. PHYSICAL EXAMINATION VITAL SIGNS: Blood pressure 159/79, pulse 47 and regular. HEENT: Negative, 2+ carotid upstrokes, no bruits. LUNGS: Clear. HEART: Regular with no murmurs, rubs or gallops ABDOMEN: Soft, no bruits. EXTREMITIES: Without edema, 2+ distal pulses. NEUROLOGIC: Grossly nonfocal. CARDIOLOGY STUDIES Electrocardiogram was reviewed and showed sinus bradycardia with normal axis and intervals, no acute changes. Telemetry shows sinus bradycardia between 47 and 50. LABORATORY DATA Hemoglobin 14.6, potassium 3.9, creatinine 1.2, troponin normal. LDL 88, HDL 73. DIAGNOSES 1. Transient ischemic attack 2. Sinus bradycardia, asymptomatic 3. Dyslipidemia DISPOSITION Mr. Simms has had no recurrence of his symptoms. His sinus bradycardia appears to be asymptomatic. I recommend to continue his current medical program with baby aspirin and pravastatin for his dyslipidemia. He can be discharged home from a cardiac standpoint. I will schedule him for outpatient followup in our office after discharge. This was discussed with the patient and his and they understand the plan. MD RACHEL Camilo/ /4:31 PM /8:26 PM SUSAN
[2017-01-18] MEDS ORDERED: SODIUM CHLORIDE 0.9% FLUSH 5 ML FLUSH IV FLUSH SCH (21:00)
--- NOTE | 2017-01-19 16:54 | EKG ---
Date Performed: 01/18/2017 Time Performed: 10:57:38 PTAGE: 81 years EKG: Sinus bradycardia with sinus arrhythmia with 1st degree A-V block. Lateral ST-T changes are nonspecific Compared to previous tracing, QT interval is slightly shorter, and biphasic T waves are new laterally Abnormal ECG PREVIOUS TRACING : 01/16/2017 23.14 DOCTOR: Albert Wilkes Interpretating Date/Time 01/19/2017 16:53:25
== END 2017-01-18 19:15 | disposition home or self-care (01) ==
LOC: PHED 19:45 → PHEDA 22:09 → PHEDH 01-17 02:09 → PH3A 01-17 13:35
PROVIDERS: ADMIT Specialist; ATTEND Specialist
DX: G45.9 Transient cerebral ischemic attack, unspecified (principal); E78.00 Pure hypercholesterolemia, unspecified; E78.5 Hyperlipidemia, unspecified; F10.10 Alcohol abuse, uncomplicated; R00.1 Bradycardia, unspecified; Y90.2 Blood alcohol level of 40-59 mg/100 ml
CPT/HCPCS: 70450; 70544; 70551; 71010; 80048; 80061; 80307; 81001; 84484; 85025; 85610; 85730; 93005; 93306; 93880; G0378; J1650; J7030

== ENCOUNTER 2018-07-19 09:22 | Observation (INO) ==
--- NOTE | 2018-07-19 10:08 | ED ---
HPI General Chief complaint: Extremity Problem,Nontraumatic Stated complaint: Lt shoulder/neck pain x this am Source: patient, family, RN notes reviewed and old records reviewed Mode of arrival: ambulatory Limitations: no limitations History of Present Illness HPI Narrative: 82-year-old male states he has been having left shoulder pain that goes up into his neck when he exerts himself over the past couple of days. He denies any trauma or other concurrent complaints. He states if he will stop running the pain got better. He states he tried to take Aleve today when it recurred again while he was at rest and it did not improve. He states the pain does not get worse with movement of his left shoulder. He states he takes an aspirin daily and took one today. He states he was told he had high blood pressure in the past but he did not like the way the medication made him feel so he stopped taking this. He states when he has been at the doctor before for will check his blood pressure will be normal off of medications. Quality is sharp. Severity is moderate. Complaint: extremity pain Onset (ago): day(s) Location: left Exacerbating factors: exertion Associated symptoms: denies other symptoms Related Data Home Medications Medication Instructions Recorded Confirmed Aspirin Low Dose 81 mg PO DAILY 07/19/18 07/19/18 Allergies Allergy/AdvReac Type Severity Reaction Status Date / Time No Known Allergies Allergy Uncoded 01/16/17 20:16 Review of Systems ROS: all other systems reviewed are negative [facility] Medical History Medical History Patient denies medical problems (Acute) Surgical History Surgical History No history of previous surgery (Acute) Social History Social History Substance History: No History of Abuse Smoking Status: Former smoker How Often Do You Have a Drink Containing Alcohol: Never Recent Travel in [facility] within the Last 8 Weeks: No Recent Out of Country Travel within the Last 8 Weeks: No Immunization History Tetanus Immunization: <5 Years Hx Influenza Vaccine This Season: No Exam Narrative Exam Narrative: GENERAL: 82-year-old male in no apparent distress SKIN: Focused skin assessment warm/dry. HEAD: Atraumatic. Normocephalic. EYES: Pupils equal and round. No scleral icterus. No injection or drainage. ENT: No nasal bleeding or discharge. Mucous membranes pink and moist. NECK: Trachea midline. No JVD. CARDIOVASCULAR: Regular rate and rhythm. No murmur appreciated. RESPIRATORY: No accessory muscle use. Clear to auscultation. Breath sounds equal bilaterally. GASTROINTESTINAL: Abdomen soft, non-tender, nondistended. MUSCULOSKELETAL: No obvious deformities. No clubbing. No cyanosis. No edema. No specific joint tenderness noted to left shoulder or with range of motion NEUROLOGICAL: Awake and alert. No obvious cranial nerve deficits. Motor grossly within normal limits. Normal speech. PSYCHIATRIC: Appropriate mood and affect; insight and judgment normal. Course Reevaluation(s) Reevaluation #1: ED workup without emergent process, agrees to chest pain center observation for left arm pain with exertion Initial Documented Vital Signs Temperature 97.4 F L 07/19/18 09:26 Pulse Rate 53 L 07/19/18 09:26 Respiratory Rate 16 07/19/18 09:26 Blood Pressure 207/88 H 07/19/18 09:26 Pulse Oximetry 98 07/19/18 09:26 Last Documented Vital Signs Temperature 97.4 F L 07/19/18 09:26 Pulse Rate 50 L 07/19/18 10:35 Respiratory Rate 14 07/19/18 10:35 Blood Pressure 189/91 H 07/19/18 10:35 Pulse Oximetry 95 07/19/18 10:35 Medical Decision Making MDM Narrative Medical decision making narrative: Will check blood work, imaging and reevaluate. Given atraumatic with movement into his neck and age will check cardiac workup. Medical Screen Exam Complete: Yes Emergency Medical Condition: Yes Differential Diagnosis Differential Diagnosis: Musculoskeletal strain, cardiac, arthritis Lab Data Lab results reviewed: Yes I reviewed the patient's lab results. Result diagrams: 07/19/18 10:10 07/19/18 10:10 Lab Results 07/19/18 07/19/18 07/19/18 Range/Units 10:10 10:10 10:10 CBC w Diff Auto diff final WBC 3.8 L (4.0-11.0) th/mm3 RBC 4.17 L (4.50-5.90) mil/mm3 Hgb 13.4 (13.0-17.0) gm/dL Hct 39.6 (39.0-51.0) % MCV 95.2 (80.0-100.0) fL MCH 32.3 (27.0-34.0) pg MCHC 33.9 (32.0-36.0) % RDW 13.5 (11.6-17.2) % Plt Count 183 (150-450) th/mm3 MPV 7.3 (7.0-11.0) fL Neut % (Auto) 72.9 H (16.0-70.0) % Lymph % (Auto) 17.7 (9.0-44.0) % [place] % (Auto) 7.2 (0.0-8.0) % Eos % (Auto) 1.9 (0.0-4.0) % Baso % (Auto) 0.3 (0.0-2.0) % Neut # (Auto) 2.7 (1.8-7.7) th/mm3 Lymph # (Auto) 0.7 L (1.0-4.8) th/mm3 [place] # (Auto) 0.3 (0.0-0.9) th/mm3 Eos # (Auto) 0.1 (0.0-0.4) th/mm3 Baso # (Auto) 0.0 (0.0-0.2) th/mm3 WBC Differential . Differential Comment . PT 10.2 (9.8-11.6) sec INR 1.0 Ratio APTT 23.8 L (24.3-30.1) sec Sodium 144 (136-145) meq/L Potassium 4.0 (3.5-5.1) meq/L Chloride 108 H (98-107) meq/L Carbon Dioxide 27.9 (21.0-32.0) meq/L Anion Gap 8 (5-15) meq/L BUN 22 H (7-18) mg/dL Creatinine 1.10 (0.60-1.30) mg/dL Estimated GFR 64 L (>89) mL/min Random Glucose 175 H (74-106) mg/dL Calcium 8.7 (8.5-10.1) mg/dL Magnesium 2.3 (1.5-2.5) mg/dL Total Bilirubin 0.6 (0.2-1.0) mg/dL AST 18 (15-37) U/L ALT 11 L (12-78) U/L Alkaline Phosphatase 69 (45-117) U/L Total Creatine Kinase 75 (39-308) U/L Troponin I Less than 0.02 L (0.02-0.05) ng/mL Total Protein 6.6 (6.4-8.2) g/dL Albumin 3.7 (3.4-5.0) g/dL Imaging Data Attestation: I personally reviewed and interpreted this imaging study as follows : Radiologist's impression: Chest X-Ray 07/19/18 09:57 CONCLUSION: Negative chest ECG Data Attestation: I personally reviewed and interpreted this ECG as follows: Interpretation: Sinus bradycardia at [address] segment elevation or depression or consecutive T-wave inversion Discharge Plan Discharge Disposition Patient Disposition: 30 Still Patient Discharge Details Diagnosis: Arm pain, left, Bradycardia Physicians Team ED Provider: Kourtney Talley Primary Care Provider: Kyle Anguiano Rxs /Orders / Referrals /Forms Prescriptions: No Action Aspirin Low Dose 81 mg PO DAILY RF: 0 Status ED Status: Admitted Observation Patient
[2018-07-19 10:14] LABS: Baso % (Auto) 0.3 % (0.0-2.0); Eos # (Auto) 0.1 th/mm3 (0.0-0.4); Eos % (Auto) 1.9 % (0.0-4.0); Hematocrit 39.6 % (39.0-51.0); Hemoglobin 13.4 gm/dL (13.0-17.0); Lymph # (Auto) 0.7 th/mm3 (1.0-4.8); Lymph % (Auto) 17.7 % (9.0-44.0); Mean Corpuscular HGB Conc 33.9 % (32.0-36.0); Mean Corpuscular Hemoglobin 32.3 pg (27.0-34.0); Mean Corpuscular Volume 95.2 fL (80.0-100.0); Mean Platelet Volume 7.3 fL (7.0-11.0); Mono # (Auto) 0.3 th/mm3 (0.0-0.9); Mono % (Auto) 7.2 % (0.0-8.0); Neut # (Auto) 2.7 th/mm3 (1.8-7.7); Neut % (Auto) 72.9 % (16.0-70.0); Platelet Count 183 th/mm3 (150-450); Red Blood Count 4.17 mil/mm3 (4.50-5.90); Red Cell Distribution Width 13.5 % (11.6-17.2); White Blood Count 3.8 th/mm3 (4.0-11.0)
[2018-07-19 10:22] LABS: Chloride 108 meq/L (98-107); Sodium 144 meq/L (136-145)
[2018-07-19 10:26] LABS: Activated Partial Thrombo Time 23.8 sec (24.3-30.1); Albumin 3.7 g/dL (3.4-5.0); Anion Gap 8 meq/L (5-15); Blood Urea Nitrogen 22 mg/dL (7-18); Calcium 8.7 mg/dL (8.5-10.1); Carbon Dioxide 27.9 meq/L (21.0-32.0); Glucose,Random 175 mg/dL (74-106); Magnesium 2.3 mg/dL (1.5-2.5); Prothrombin Time 10.2 sec (9.8-11.6)
[2018-07-19 10:29] LABS: Alanine Aminotransferase 11 U/L (12-78); Glomerular Filtration Rate 64 mL/min (>89)
[2018-07-19 10:31] LABS: Total Protein 6.6 g/dL (6.4-8.2)
[2018-07-19 10:32] LABS: Alkaline Phosphatase 69 U/L (45-117)
[2018-07-19 10:33] LABS: Aspartate Aminotransferase 18 U/L (15-37)
--- NOTE | 2018-07-19 10:50 | XR ---
EXAM DATE: 07/19/2018 10:24 AM EDT AGE/SEX: 82 years / Male INDICATIONS: Left upper chest pain today CLINICAL DATA: This is the patient's initial encounter. Patient reports that signs and symptoms have been present for 1 day and indicates a pain score of 10/10. MEDICAL/SURGICAL HISTORY: None. None. COMPARISON: [facility], CHEST SINGLE AP, 01/16/2017. . FINDINGS: A single AP view of the chest demonstrates the lungs to be symmetrically aerated without evidence of mass, infiltrate or effusion. The cardiomediastinal contours are unremarkable. Osseous structures a re intact. CONCLUSION: Negative chest Electronically signed by: Giovanni Garland MD 07/19/2018 10:49 AM EDT
[2018-07-19 10:51] LABS: Creatine Kinase 75 U/L (39-308)
[2018-07-19] MEDS ORDERED: Morphine Inj 4 MG/ML Vial IV.PUSH PRN (11:19)
[2018-07-19] MEDS ORDERED: Acetaminophen 500 MG Tablet PO PRN (11:19)
[2018-07-19] MEDS: Heparin - SQ 10,000 UNITS/ML Vial SQ SCH (12:01)
--- NOTE | 2018-07-19 14:28 | P.HP ---
History of Present Illness Primary Care Physician: Kyle Anguiano MD Chief Complaint: Left shoulder pain History of Present Illness: This is a 82-year-old male with a history of untreated hypertension, hyperlipidemia, sinus bradycardia and former smoker. He presents to the emergency department complaining of left shoulder pain. About a week ago he was moving a furniture and complain of upper back discomfort. 2 days later he ran 3 miles over does not and bridged with no problems. He ran again 2 days ago and this time developed left shoulder pain which improved when he rested. Denies chest pain, shortness of breath, palpitations, dizziness nausea and vomiting. He was doing well until this morning when he had recurrence of pain at rest. He took aspirin and Aleve without relief. Because of CAD risk factors , emergency room physician recommended further evaluation. Chest x-ray interpreted by me with no acute cardiopulmonary disease. EKG tracing interpreted by me with sinus bradycardia with no ST elevation. At this time, he is asymptomatic. All other systems reviewed negative Review of Systems All other systems reviewed negative except as stated in HPI [facility] - History History Provided By: Patient, Significant Other - Medical History Medical History: Medical History (Last Updated 07/19/18 @ 14:21 by Kyle Juarez MD) Patient denies medical problems (Acute) HLD (hyperlipidemia) HTN (hypertension) Sinus bradycardia - Surgical History Surgical History: Surgical History (Last Updated 07/19/18 @ 14:21 by Kyle Juarez MD) H/O knee surgery No history of previous surgery - Family History Family History: Family History (Last Updated 07/19/18 @ 14:22 by Kyle Juarez MD) Other No pertinent family history - Tobacco History Second Hand Smoke Exposure: No Tobacco Use In Past 30 Days: No Smoking Status: Former smoker - Alcohol History How Often Do You Have a Drink Containing Alcohol: 2 to 4 times a month - Substance Use History Substance History: No History of Abuse - Travel History Recent Travel in the [place] Within the Last 8 Weeks: Yes Recent Travel Out of the Country Within the Last 8 Weeks: No - Immunization History Tetanus Immunization: <5 Years Hx Influenza Vaccine This Season: No Medications and Allergies Active Medications: Active Medications Acetaminophen (Tylenol) 500 mg PO Q4H PRN PRN Reason: HEADACHE Hydrocodone Bitart/Acetaminophen ([place]na 7.5/325) 1 tab PO Q4H PRN PRN Reason: PAIN SCALE 1 TO 7 Aspirin (Aspirin) 325 mg PO DAILY [facility] Enalaprilat (Vasotec Inj) 1.25 mg IV.PUSH Q6H PRN PRN Reason: SEE LABEL COMMENTS Last Admin: 07/19/18 12:48 Dose: 1.25 mg Heparin Sodium (Porcine) (Heparin Inj) 5,000 units SQ Q12H TRINITY Last Admin: 07/19/18 12:01 Dose: 5,000 units Morphine Sulfate (Morphine Inj) 2 mg IV.PUSH Q4H PRN PRN Reason: PAIN SCALE 8 TO 10 Nitroglycerin (Nitrostat Sl) 0.4 mg SL Q5M PRN PRN Reason: CHEST PAIN Ondansetron HCl (Zofran Inj) 4 mg IV.PUSH Q6H PRN PRN Reason: NAUSEA Sodium Chloride (Ns Flush) 2 ml IV.FLUSH UNSCH PRN PRN Reason: FLUSH AFTER USING IV ACCESS Sodium Chloride (Ns Flush) 2 ml IV.FLUSH BID TRINITY Sodium Chloride (Ns Flush) 2 ml IV.FLUSH PRN PRN PRN Reason: FLUSH AFTER USING IV ACCESS Allergies Allergy/AdvReac Type Severity Reaction Status Date / Time No Known Allergies Allergy Uncoded 01/16/17 20:16 Home Medications Medication Instructions Recorded Confirmed Type aspirin 81 mg PO DAILY 07/19/18 07/19/18 History Exam Vital signs: Vital Signs 07/19/18 09:26 07/19/18 10:10 07/19/18 10:35 Temperature 97.4 F L Pulse Rate 53 L 47 L 50 L Respiratory Rate 16 14 Blood Pressure 207/88 H 189/91 H Pulse Oximetry 98 97 95 07/19/18 11:59 07/19/18 12:30 07/19/18 13:08 Temperature 96.4 F L Pulse Rate 50 L 53 L 54 L Respiratory Rate 18 20 Blood Pressure 178/74 H 194/90 H Pulse Oximetry 97 98 07/19/18 13:28 Temperature Pulse Rate Respiratory Rate Blood Pressure 174/78 H Pulse Oximetry Intake & Output 07/18/18 07/19/18 07/19/18 18:59 06:59 18:59 Weight 62.5 kg Other: Weight On Admission 62.5 kg Narrative: GENERAL: Well-developed, well-nourished in no distress SKIN: Warm and dry. HEAD: Atraumatic. Normocephalic. EYES: Pupils equal and round. No scleral icterus. No injection or drainage. ENT: No nasal bleeding or discharge. Mucous membranes pink and moist. NECK: Trachea midline. No JVD. CARDIOVASCULAR: Regular rhythm. Bradycardic RESPIRATORY: No accessory muscle use. Clear to auscultation. Breath sounds equal bilaterally. GASTROINTESTINAL: Abdomen soft, non-tender, nondistended. MUSCULOSKELETAL: Extremities without clubbing, cyanosis, or edema. No obvious deformities. NEUROLOGICAL: Awake and alert. No obvious cranial nerve deficits. Motor grossly within normal limits. Five out of 5 muscle strength in the arms and legs. Normal speech. PSYCHIATRIC: Appropriate mood and affect; insight and judgment normal. Results - Labs CBC & Chem 7: 07/19/18 10:10 07/19/18 10:10 Labs: Laboratory Results - last 24 hr 07/19/18 07/19/18 07/19/18 10:10 10:10 10:10 CBC w Diff Auto diff final WBC 3.8 L RBC 4.17 L Hgb 13.4 Hct 39.6 MCV 95.2 MCH 32.3 MCHC 33.9 RDW 13.5 Plt Count 183 MPV 7.3 Neut % (Auto) 72.9 H Lymph % (Auto) 17.7 Emery % (Auto) 7.2 Eos % (Auto) 1.9 Baso % (Auto) 0.3 Neut # (Auto) 2.7 Lymph # (Auto) 0.7 L Emery # (Auto) 0.3 Eos # (Auto) 0.1 Baso # (Auto) 0.0 WBC Differential . Differential Comment . PT 10.2 INR 1.0 APTT 23.8 L Sodium 144 Potassium 4.0 Chloride 108 H Carbon Dioxide 27.9 Anion Gap 8 BUN 22 H Creatinine 1.10 Estimated GFR 64 L Random Glucose 175 H Calcium 8.7 Magnesium 2.3 Total Bilirubin 0.6 AST 18 ALT 11 L Alkaline Phosphatase 69 Total Creatine Kinase 75 Troponin I Less than 0.02 L Total Protein 6.6 Albumin 3.7 - Imaging Impressions Chest X-Ray 07/19/18 09:57 CONCLUSION: Negative chest Caprini VTE Risk Assessment Caprini VTE Risk Assessment: Moderate/High Risk (score >= 2) Caprini Risk Assessment Model: Point Value = 1 Point Value = 2 Point Value = 3 Point Value = 5 Age 41-60 Minor surgery BMI > 25 kg/m2 Swollen legs Varicose veins or History of unexplained or recurrent spontaneous Oral contraceptives or hormone replacement Sepsis (< 1 month) Serious lung disease, including pneumonia (< 1 month) Abnormal pulmonary function Acute myocardial infarction Congestive heart failure (< 1 month) History of inflammatory bowel disease Medical patient at bed rest Age 61-74 Arthroscopic surgery Major open surgery (> 45 min) Laparoscopic surgery (> 45 min) Malignancy Confined to bed (> 72 hours) Immobilizing plaster cast Central venous access Age >= 75 History of VTE Family history of VTE Factor V Leiden Prothrombin [id number] Lupus anticoagulant Anticardiolipin antibodies Elevated serum homocysteine Heparin-induced thrombocytopenia Other congenital or acquired thrombophilia Stroke (< 1 month) Elective arthroplasty Hip, pelvis, or leg fracture Acute spinal cord injury (< 1 month) Prophylaxis Regimen: Total Risk Factor Score Risk Level Prophylaxis Regimen 0-1 Low Early ambulation 2 Moderate Order ONE of the following: *Sequential Compression Device (SCD) *Heparin 5000 units SQ BID 3-4 Higher Order ONE of the following medications: *Heparin 5000 units SQ TID *Enoxaparin/Lovenox 40 mg SQ daily (WT < 150 kg, CrCl > 30 mL/min) *Enoxaparin/Lovenox 30 mg SQ daily (WT < 150 kg, CrCl > 10-29 mL/min) *Enoxaparin/Lovenox 30 mg SQ BID (WT < 150 kg, CrCl > 30 mL/min) AND/OR *Sequential Compression Device (SCD) 5 or more Highest Order ONE of the following medications: *Heparin 5000 units SQ TID (Preferred with Epidurals) *Enoxaparin/Lovenox 40 mg SQ daily (WT < 150 kg, CrCl > 30 mL/min) *Enoxaparin/Lovenox 30 mg SQ daily (WT < 150 kg, CrCl > 10-29 mL/min) *Enoxaparin/Lovenox 30 mg SQ BID (WT < 150 kg, CrCl > 30 mL/min) AND *Sequential Compression Device (SCD) Assessment and Plan - Plan This is a 82-year-old male with a history of untreated hypertension, hyperlipidemia, sinus bradycardia and former smoker. He presents to the emergency department complaining of left shoulder pain worse during running. Because of CAD risk factors, emergency room physician recommended further evaluation. Trend cardiac enzymes. He is ruling out for IA. EKG and chest x- ray reviewed. He will undergo ECG treadmill test ct asa. I think left shoulder pain is musculoskeletal in origin which is currently improved at this time. Uncontrolled hypertension. Per patient, blood pressure within normal limits when checked at home. His primary care physician is closely watching it. Likely he has white coat hypertension. Continue to monitor with as needed Vasotec. May need Norvasc so he can proceed with stress test. Hyperlipidemia. Outpatient follow-up with heart healthy diet DVT prophylaxis with SCD and subcu heparin Discharge Planning: Discharge patient to home if negative stress test. Condition on discharge: Improved Regular Diet as tolerated Ad Marlene activity Rx written: Norvasc Follow-up with primary care physician
--- NOTE | 2018-07-19 14:36 | ECG ---
Date Performed: 07/19/2018 Time Performed: 09:47:03 PTAGE: 82 years EKG: SINUS BRADYCARDIA WITH FIRST DEGREE AV BLOCK ABNORMAL ECG Since the PREVIOUS TRACING , no significant change noted PREVIOUS TRACIN01/18/2017 10.57 DOCTOR: Vianey Robbins Interpretating Date/Time 07/19/2018 14:31:34
[2018-07-19 14:56] LABS: Creatine Kinase 70 U/L (39-308)
[2018-07-19 16:43] LABS: Creatine Kinase 71 U/L (39-308)
[2018-07-20] MEDS: Heparin - SQ 10,000 UNITS/ML Vial SQ SCH ×2 (01:28→13:51)
[2018-07-20 08:13] VITALS: O2SAT 96
[2018-07-20] MEDS ORDERED: amLODIPine 5 MG Tablet PO SCH (09:00)
[2018-07-20] MEDS ORDERED: Aspirin 325 MG Tablet PO SCH (09:00)
[2018-07-20 09:28] VITALS: BP 159/77; RESP 16; TEMP 96.3
--- NOTE | 2018-07-20 09:32 | P.PN ---
Subjective Interval history: Follow-up hypertension. BP readings much improved overnight. He has no complaints. Failed treadmill pending Lexiscan today. Physical Exam Vital signs: Vital Signs 07/19/18 10:10 07/19/18 10:35 07/19/18 11:59 Temperature Pulse Rate 47 L 50 L 50 L Respiratory Rate 14 18 Blood Pressure 189/91 H 178/74 H Pulse Oximetry 97 95 97 07/19/18 12:30 07/19/18 13:08 07/19/18 13:28 Temperature 96.4 F L Pulse Rate 53 L 54 L Respiratory Rate 20 Blood Pressure 194/90 H 174/78 H Pulse Oximetry 98 07/19/18 16:00 07/19/18 18:07 07/19/18 20:00 Temperature 97.4 F L 96.3 F L Pulse Rate 53 L 55 L Respiratory Rate 20 12 Blood Pressure 144/68 H 152/74 H Pulse Oximetry 97 96 97 07/20/18 00:00 07/20/18 03:35 07/20/18 08:00 Temperature 96.1 F L 96.4 F L 96.3 F L Pulse Rate 45 L 40 L 50 L Respiratory Rate 18 18 16 Blood Pressure 146/65 H 143/61 H 159/77 H Pulse Oximetry 97 99 95 07/20/18 08:12 Temperature Pulse Rate Respiratory Rate Blood Pressure Pulse Oximetry 96 Intake & Output 07/19/18 07/20/18 07/20/18 18:59 06:59 18:59 Intake Total 610 / 610 Balance 610 / 610 Weight 62.5 kg 64.2 kg Intake: Oral 610 / 610 Other: # Voids 3 2 # Bowel Movements 0 Weight On Admission 62.5 kg Narrative: GENERAL: Well-developed, well-nourished in no distress SKIN: Warm and dry. CARDIOVASCULAR: Regular rhythm. Bradycardic RESPIRATORY: No accessory muscle use. Clear to auscultation. Breath sounds equal bilaterally. GASTROINTESTINAL: Abdomen soft, non-tender, nondistended. MUSCULOSKELETAL: Extremities without clubbing, cyanosis, or edema. No obvious deformities. NEUROLOGICAL: Awake and alert. No obvious cranial nerve deficits. Motor grossly within normal limits. Five out of 5 muscle strength in the arms and legs. Normal speech. PSYCHIATRIC: Appropriate mood and affect; insight and judgment normal. Results - Labs CBC & Chem 7: 07/19/18 10:10 07/19/18 10:10 Laboratory Results - last 24 hr 07/19/18 07/19/18 07/19/18 10:10 10:10 10:10 CBC w Diff Auto diff final WBC 3.8 L RBC 4.17 L Hgb 13.4 Hct 39.6 MCV 95.2 MCH 32.3 MCHC 33.9 RDW 13.5 Plt Count 183 MPV 7.3 Neut % (Auto) 72.9 H Lymph % (Auto) 17.7 Sandoval % (Auto) 7.2 Eos % (Auto) 1.9 Baso % (Auto) 0.3 Neut # (Auto) 2.7 Lymph # (Auto) 0.7 L [place] # (Auto) 0.3 Eos # (Auto) 0.1 Baso # (Auto) 0.0 WBC Differential . Differential Comment . PT 10.2 INR 1.0 APTT 23.8 L Sodium 144 Potassium 4.0 Chloride 108 H Carbon Dioxide 27.9 Anion Gap 8 BUN 22 H Creatinine 1.10 Estimated GFR 64 L Random Glucose 175 H Calcium 8.7 Magnesium 2.3 Total Bilirubin 0.6 AST 18 ALT 11 L Alkaline Phosphatase 69 Total Creatine Kinase 75 Troponin I Less than 0.02 L Total Protein 6.6 Albumin 3.7 07/19/18 07/19/18 13:20 16:12 CBC w Diff WBC RBC Hgb Hct MCV MCH MCHC RDW Plt Count MPV Neut % (Auto) Lymph % (Auto) Sandoval % (Auto) Eos % (Auto) Baso % (Auto) Neut # (Auto) Lymph # (Auto) Sandoval # (Auto) Eos # (Auto) Baso # (Auto) WBC Differential Differential Comment PT INR APTT Sodium Potassium Chloride Carbon Dioxide Anion Gap BUN Creatinine Estimated GFR Random Glucose Calcium Magnesium Total Bilirubin AST ALT Alkaline Phosphatase Total Creatine Kinase 70 71 Troponin I Less than 0.02 L Less than 0.02 L Total Protein Albumin - Imaging Impressions Chest X-Ray 07/19/18 09:57 CONCLUSION: Negative chest - Procedures none Assessment and Plan - Plan This is a 82-year-old male with a history of untreated hypertension, hyperlipidemia, sinus bradycardia and former smoker. He presents to the emergency department complaining of left shoulder pain worse during running. Because of CAD risk factors, emergency room physician recommended further evaluation. Ruled out for [place]. Failed exercise stress test pending Lexiscan today. Continue aspirin and sublingual nitroglycerin as needed. I think left shoulder pain is musculoskeletal in origin which is currently improved at this time. Uncontrolled hypertension. Per patient, blood pressure within normal limits when checked at home. His primary care physician is closely watching it. Likely he has white coat hypertension. Continue to monitor with as needed Vasotec. Hyperlipidemia. Outpatient follow-up with heart healthy diet DVT prophylaxis with SCD and subcu heparin Discharge Planning: Discharge patient to home if negative stress test. Condition on discharge: Improved Regular Diet as tolerated Ad Marlene activity Rx written: None Follow-up with primary care physician
--- NOTE | 2018-07-20 09:40 | TR ---
Date Performed: 07/19/2018 Time Performed: 15:38:35 DOCTOR: Conner Andersen DRUG LIST: CLINICAL HISTORY: REASON FOR TEST: REASON FOR ENDING: OBSERVATION: CONCLUSION: Favian protocol completed test stopped secondary to reaching target heart rate. Great exercise tolerance. BP response normal. Recovery quick and unremarakble. Depression seen in leads II and III as well as V5 and V6. Maximum TU=089 Target HR Zchaxdgw=345.0% Maximum RV=749/78 Total Exerc ise Time=5:54 COMMENTS: Patient developed J-point depression but with upsloping ST segments. Abnormal J-point depression but nondiagnostic of ischemia.
[2018-07-20 10:15] VITALS: PULSE 52
[2018-07-20] MEDS ORDERED: Regadenoson Inj 0.4 MG/5 ML Syringe IV.PUSH ONE (10:46)
--- NOTE | 2018-07-20 11:57 | ECG ---
Date Performed: 07/19/2018 Time Performed: 13:23:59 PTAGE: 82 years EKG: SINUS BRADYCARDIA WITH FIRST DEGREE AV BLOCK NONSPECIFIC T-WAVE ABNORMALITY ABNORMAL ECG Si nce the PREVIOUS TRACING , no significant change noted PREVIOUS TRACIN07/19/2018 09.47 DOCTOR: Vianey Robbins Interpretating Date/Time 07/23/2018 07:45:53
--- NOTE | 2018-07-20 11:57 | ECG ---
Date Performed: 07/19/2018 Time Performed: 16:09:32 PTAGE: 82 years EKG: SINUS BRADYCARDIA WITH FIRST DEGREE AV BLOCK MODERATE ST DEPRESSION ABNORMAL ECG Since the PREVIOUS TRACING , no significant change noted PREVIOUS TRACIN07/19/2018 13.23 DOCTOR: Vianey Robbins Interpretating Date/Time 07/23/2018 07:46:44
--- NOTE | 2018-07-20 12:22 | NM ---
EXAM DATE: 07/20/2018 12:17 PM EDT AGE/SEX: 82 years / Male INDICATIONS:Abnormal EKG. . Chest pain. CLINICAL DATA: This is the patient's initial encounter. Patient reports that signs and symptoms have been present for 1 day and indicates a pain score of 0/10. MEDICAL/SURGICAL HISTORY: Hypercholesterolemia. Hypertension. Total knee replacement, left. COMPARISON: No prior exams available for comparison. DOSE: 8.5 mCi Tc 99m Myoview at rest 27.3 mCi [id number] at stress 0.4 mg Lexiscan STRESS SYMPTOMS: Abdomen pain. EJECTION FRACTION: 64 % TECHNIQUE: The patient underwent pharmacologic stress with infusion of prescribed dose. Continuous ECG tracing was monitored during stress. Gated SPECT imaging was performed after stress and conventi onal SPECT imaging was performed at rest. The examination was performed on a SPECT/CT scanner, both attenuation and non-corrected datasets were reviewed. FINDINGS: Distribution: The maximum perfused segment at stress is in the inferior wall. Perfusion Study: Small fixed anterior wall and apical defects identified. No definite reversible pe rfusion defects are identified. Gated Study: There are intact wall motion and wall thickening without hypokinetic or dyskinetic segm ents. The ejection fraction is calculated at 64%. RISK CATEGORY: Low (<1% Annual Motality Rate) CONCLUSION: 1. No definite reversible perfusion defects are identified to suggest stress-induced myocardial isch emia. Electronically signed by: Swapnil Keller MD 07/20/2018 12:21 PM EDT
--- NOTE | 2018-07-21 14:52 | TR ---
Date Performed: 07/20/2018 Time Performed: 10:59:18 DOCTOR: Constantin Cooper DRUG LIST: CLINICAL HISTORY: REASON FOR TEST: REASON FOR ENDING: OBSERVATION: CONCLUSION: COMMENTS: Lexiscan stress test was performed under standard four minute protocol. Radionuclide was injected one minute prior to ending the test. No electrocardiographic abormalities were present t o suggest ischemia. Nuclear imaging and interpretation are pending.
== END 2018-07-20 13:52 | disposition home or self-care (01) ==
LOC: PHED 09:22 → PHEDA 09:22 → PH3 12:11
PROVIDERS: ADMIT Internal Medicine; ATTEND Internal Medicine
DX: E78.5 Hyperlipidemia, unspecified; I10 Essential (primary) hypertension; R00.1 Bradycardia, unspecified; Z87.891 Personal history of nicotine dependence; M54.2 Cervicalgia; Z79.82 Long term (current) use of aspirin; R94.31 Abnormal electrocardiogram [ECG] [EKG]; M25.512 Pain in left shoulder